=== PATIENT | male | born 1995 | race Caucasian/White ===

== ENCOUNTER 2022-06-07 12:21 | Emergency (ER) | payer OTHER ==
[~2022-06-07] VITALS: Ht 190.5 cm; Wt 81.6 kg
[2022-06-07] MEDS ORDERED: ONDANSETRON ODT4 MG PO (12:53)
[2022-06-07] MEDS ORDERED: ONDANSETRON HCL 4 MG ORAL DISINTEGRATING TAB PO ONE (13:00)
== END 2022-06-07 13:11 | disposition home or self-care (01) ==
LOC: ER 12:26
DX: R11.0 Nausea (principal); R42 Dizziness and giddiness; H92.02 Otalgia, left ear
CPT/HCPCS: 93005; 99283

== ENCOUNTER 2022-08-10 08:23 | Emergency (ER) | payer OTHER ==
[~2022-08-10] VITALS: Ht 190.5 cm; Wt 81.6 kg
[~2022-08-10 08:23] MED LIST: ONDANSETRON ODT4 MG PO
[2022-08-10] MEDS ORDERED: KETOROLAC TROMETHAMINE 60 MG/2 ML VIAL IM ONE (08:45)
[2022-08-10] MEDS ORDERED: HYDROCODONE/APAP 5MG-325MG TAB PO ONE (08:45)
[2022-08-10] MEDS ORDERED: HYDROCODON-ACE1 EA11 PO (10:12)
[2022-08-10 10:32] VITALS: BP 123/77
== END 2022-08-10 10:35 | disposition home or self-care (01) ==
LOC: ER 08:27
DX: M25.551 Pain in right hip (principal); Y93.02 Activity, running
CPT/HCPCS: 73502; 99283; J1885